=== PATIENT | male | born 1940 | race Two or more races ===

== ENCOUNTER 2017-11-12 08:13 | Outpatient (CLI) | payer OTHER | END 2017-11-12 09:25 | disposition home or self-care (01) | LOC: SONOGRAMA 08:13 | DX: K80.80 Other cholelithiasis without obstruction (principal) ==

== ENCOUNTER 2018-09-30 05:47 | Emergency (ER) | payer OTHER ==
[~2018-09-30] VITALS: Ht 175.3 cm; Wt 72.6 kg
[2018-09-30] MEDS ORDERED: ATORVASTATIN CA10 MG (05:56)
== END 2018-09-30 08:55 | disposition home or self-care (01) ==
LOC: ER 05:47
DX: M25.512 Pain in left shoulder (principal)

== ENCOUNTER 2020-11-29 07:17 | Emergency (ER) | payer OTHER ==
[~2020-11-29] VITALS: Ht 175.3 cm; Wt 68.0 kg
[~2020-11-29 07:17] MED LIST: ATORVASTATIN CA10 MG
== END 2020-11-29 11:00 | disposition home or self-care (01) ==
LOC: ER 07:17
DX: K59.09 Other constipation (principal); R10.84 Generalized abdominal pain

== ENCOUNTER 2021-04-24 09:57 | Emergency (ER) | payer OTHER ==
[~2021-04-24] VITALS: Ht 175.3 cm; Wt 72.6 kg
== END 2021-04-24 14:08 | disposition home or self-care (01) ==
LOC: ER 09:57
DX: B34.9 Viral infection, unspecified (principal); Z20.822 Contact with and (suspected) exposure to COVID-19; R50.9 Fever, unspecified; R09.81 Nasal congestion; R07.0 Pain in throat

== ENCOUNTER 2021-04-29 08:19 | Outpatient (CLI) | payer OTHER | END 2021-04-29 09:30 | disposition home or self-care (01) | LOC: ASH CLINIC 08:19 | PROVIDERS: ATTEND General Practice | DX: U07.1 COVID-19 (principal); Z23 Encounter for immunization ==

== ENCOUNTER 2022-04-30 08:10 | Outpatient (CLI) | payer OTHER | END 2022-04-30 08:19 | disposition home or self-care (01) | LOC: TOM 08:10 | PROVIDERS: ATTEND Internal Medicine Gastroenterology | DX: Z12.2 Encounter for screening for malignant neoplasm of respiratory organs (principal) ==